=== PATIENT | female | born 1975 | race Caucasian/White ===

== ENCOUNTER → 2017-09-25 | Outpatient (CLI) | payer OTHER ==
[~2017-09-25] MED LIST: LIDOCAINE 1% MDV 20ML VIAL As Ordered ONE
--- NOTE | 2017-09-25 09:59 | REP ---
BREAST BIOPSY MAMMOGRAM LEFT BREAST: Postbiopsy mammogram left breast performed in the MLO, ML, and CC projections and compared to prior mammography from [facility] dated 08/14/2017. A metallic clip is seen at the site of the nodule seen on the prior mammogram in the upper outer quadrant of the left breast. Two lesions were identified at that location by ultrasound and both of these are sampled today using ultrasound guidance. Signed by Jean Claude Hall MD 09/26/2017 09:07 A
--- NOTE | 2017-09-25 10:30 | REP ---
ULTRASOUND LEFT BREAST: Ultrasound of the left breast performed in the region of 12 o'clock prior to a scheduled ultrasound guided biopsy. There are two adjacent hypoechoic lesions which appear cystic with internal low level echoes. These measure 1.0 x 0.5 x 1.0 cm and 3 x 3 x 4 mm. Both are subsequently biopsied. Signed by Jean Claude Hall MD 09/26/2017 09:07 A
--- NOTE | 2017-09-26 09:14 | REP ---
ULTRASOUND GUIDED LEFT BREAST BIOPSY The procedure was performed under the direct supervision of Dr. Hall The patient has a history of two adjacent hypoechoic nodules measuring 1.0 x 0.5 x 1.0 and 3 x 3 4 mm in the 12 o'clock position of the left breast seen on an ultrasound performed earlier today. The risks and benefits of the procedure were explained to the patient and informed consent was obtained. The left breast nodule was localized using ultrasound guidance. The skin was prepped and draped in a sterile fashion. 1% Xylocaine was used as a local anesthetic. Using ultrasound guidance a 13-gauge suction assisted Mammotome needle was inserted and 6 core biopsy samples were obtained. A marker clip was placed at the biopsy site. The patient tolerated the procedure well and there were no immediate complications. After the appropriate amount of monitored convalescence the patient was discharged from the department. Reviewed by ARABELLA Gaona 09/25/2017 02:21 PSigned by Jean Claude Hall MD 09/26/2017 09:05 A
== END ==
LOC: M RADPRO 08:29
PROVIDERS: ATTEND Surgery
DX: R92.0 Mammographic microcalcification found on diagnostic imaging of breast (principal); N63.20 Unspecified lump in the left breast, unspecified quadrant; Z79.899 Other long term (current) drug therapy
CPT/HCPCS: 19083; 76642; 88305; G0206